=== PATIENT | male | born 1990 | race Caucasian/White ===

== ENCOUNTER 2017-08-19 02:49 | Emergency (ER) | payer BC ==
[~2017-08-19] VITALS: Ht 167.6 cm; Wt 68.0 kg
[2017-08-19 03:06] VITALS: BP 130/82
[2017-08-19] MEDS ORDERED: FLUORESCEIN SODIUM OPHTH 1 EA STRIP ONE (03:16)
[2017-08-19] MEDS ORDERED: TETRACAINE HCL/PF 0.5% UD 2 ML BOTTLE ONE (03:16)
[2017-08-19] MEDS ORDERED: FLUORESCEIN SODIUM OPHTH 1 EA STRIP OP ONE (03:30)
[2017-08-19] MEDS ORDERED: TETRACAINE HCL/PF 0.5% UD 2 ML BOTTLE OP ONE (03:30)
== END 2017-08-19 03:34 | disposition home or self-care (01) ==
LOC: ER 02:59
DX: S05.01XA Injury of conjunctiva and corneal abrasion without foreign body, right eye, initial encounter (principal); X58.XXXA Exposure to other specified factors, initial encounter; Y93.89 Activity, other specified; Y92.89 Other specified places as the place of occurrence of the external cause; Y99.8 Other external cause status
CPT/HCPCS: 99283; A4606; Z7610